=== PATIENT | female | born 1950 ===

== ENCOUNTER 2019-02-10 07:52 | Day surgery (SDC) | payer OTHER ==
[~2019-02-10 07:52] MED LIST: CATAPRES0.1 MG PO; CLONAZEPAM1 MG PO; DETROL2 MG PO; NEURONTIN800 MG PO; PLAQUENIL PO; PROTONIX40 MG PO; SULFADIAZINE500 MG PO; SYNTHROID150 MCG PO; TOFRANIL25 MG PO; TOLTERODINE TART2 M1; TRICOR145 MG PO; VERAPAMIL ER180 MG PO; ZOLOFT50 MG PO
[2019-02-10] MEDS ORDERED: IBUPROFEN600 MG PO (13:03)
== END 2019-02-10 15:40 | disposition home or self-care (01) ==
LOC: CIR.AMB 07:52
DX: D27.0 Benign neoplasm of right ovary (principal); N73.6 Female pelvic peritoneal adhesions (postinfective)